=== PATIENT | male | born 2000 | race Caucasian/White ===

== ENCOUNTER 2019-04-25 22:16 | Observation (INO) | payer OTHER ==
--- NOTE | 2019-04-25 22:45 | ED Physician Documentation ---
PD HPI ABD PAIN - Stated complaint Stated Complaint: ABD PAIN - Chief complaint Chief Complaint: Abd Pain - History obtained from History obtained from: Patient - History of Present Illness Timing - onset: Enter time (10:00), Today Timing - duration: Hours Timing - details: Gradual onset, Constant Pain level now: 7 Quality: Pain Location: RLQ Improved by: Laying still Worsened by: Moving, Palpation Associated symptoms: Nausea. No: Fever, Vomiting, Diarrhea, Constipation Similar symptoms before: Has not had sx before Recently seen: Not recently seen Review of Systems Constitutional: reports: Reviewed and negative Eyes: reports: Reviewed and negative Ears: reports: Reviewed and negative Nose: reports: Reviewed and negative Throat: reports: Reviewed and negative Cardiac: reports: Reviewed and negative Respiratory: reports: Reviewed and negative GI: reports: Abdominal Pain, Nausea. denies: Abdominal Swelling, Vomiting, Constipation, Diarrhea : denies: Dysuria, Frequency Skin: reports: Reviewed and negative Musculoskeletal: reports: Reviewed and negative Neurologic: reports: Reviewed and negative PD PAST MEDICAL HISTORY - Past Medical History Past Medical History: No - Past Surgical History Past Surgical History: No - Allergies Allergies/Adverse Reactions: Allergies Allergy/AdvReac Type Severity Reaction Status Date / Time No Known Drug Allergies Allergy Verified 04/25/19 22:21 - Living Situation Living Situation: reports: Alone Living Arrangement: reports: At home - Social History Does the pt smoke?: No PD ED PE NORMAL - Vitals Vital signs reviewed: Yes - General General: Alert and oriented X 3, No acute distress, Well developed/nourished - HEENT HEENT: Moist mucous membranes - Neck Neck: Supple, no meningeal sign - Cardiac Cardiac: RRR, No murmur - Respiratory Respiratory: No respiratory distress, Clear bilaterally - Abdomen Abdomen: Soft, Non distended, Other (RLQ tenderness without rebound) - Back Back: No CVA TTP - Derm Derm: Normal color, Warm and dry, No rash - Extremities Extremities: No edema Results - Vitals Vitals: Vital Signs - 24 hr 04/25/19 04/26/19 04/26/19 22:21 00:55 02:33 Temperature 36.7 C 37.2 C Heart Rate 94 74 71 Respiratory 16 16 16 Rate Blood Pressure 119/53 L 107/69 117/58 L O2 Saturation 97 100 99 04/26/19 04/26/19 04:45 05:42 Temperature 36.5 C Heart Rate 80 Respiratory 16 16 Rate Blood Pressure 111/61 O2 Saturation 99 Oxygen O2 Source Room air - Labs Labs: Laboratory Tests 04/25/19 04/25/19 04/25/19 22:48 22:48 23:25 WBC 10.3 RBC 4.90 Hgb 14.4 Hct 42.7 MCV 87.0 MCH 29.4 MCHC 33.8 RDW 12.8 Plt Count 215 MPV 7.3 L Neut # (Auto) 7.6 H Lymph # (Auto) 2.0 [place] # (Auto) 0.7 Eos # (Auto) 0.0 Baso # (Auto) 0.0 Absolute Nucleated RBC 0.00 Nucleated RBC % 0.0 Sodium 136 Potassium 3.7 Chloride 100 L Carbon Dioxide 26 Anion Gap 10.0 BUN 17 Creatinine 1.0 Estimated GFR (MDRD) 96 Glucose 113 H Calcium 9.4 Total Bilirubin 0.7 AST 94 H ALT 57 Alkaline Phosphatase 72 Total Protein 7.4 Albumin 4.5 Globulin 2.9 Albumin/Globulin Ratio 1.6 Lipase 34 Urine Color YELLOW Urine Clarity CLEAR Urine pH 6.5 Ur Specific [place] 1.010 Urine Protein NEGATIVE Urine Glucose (UA) NEGATIVE Urine Ketones NEGATIVE Urine Occult Blood NEGATIVE Urine Nitrite NEGATIVE Urine Bilirubin NEGATIVE Urine Urobilinogen 0.2 (NORMAL) Ur Leukocyte Esterase NEGATIVE Ur Microscopic Review NOT INDICATED Urine Culture Comments NOT INDICATED - Rads (name of study) CT A/P Radiology: Prelim report reviewed, See rad report PD MEDICAL DECISION MAKING - ED course Complexity details: reviewed results, re-evaluated patient, considered differential, d/w patient ED course: D/W Dr. Payton, recommends antibiotic (Zosyn thus ordered) and plan is to hold in ED until she takes him to OR in the morning Departure - Departure Disposition: ED Transfer to [facility] Clinical Impression: Appendicitis Qualifiers: Appendicitis type: acute appendicitis Acute appendicitis type: unspecified acute appendicitis type Qualified Code(s): K35.80 - Unspecified acute appendicitis Condition: Good
[2019-04-25 22:53] LABS: BASOPHILS % (AUTO) 0.2 %; EOSINOPHILS % (AUTO) 0.4 %; HGB - HEMOGLOBIN 14.4 g/dL (14.0-18.0); LYMPHOCYTES % (AUTO) 19.2 %; MEAN CORPUSCULAR HEMOGLOBIN 29.4 pg (27.0-31.0); MEAN CORPUSCULAR HGB CONC 33.8 g/dL (32.0-36.0); MEAN PLATELET VOLUME 7.3 fL (7.4-11.4); MONOCYTES # (AUTO) 0.7 10^3/uL (0.0-1.0); MONOCYTES % (AUTO) 6.4 %; NEUTROPHILS # (AUTO) 7.6 10^3/uL (1.5-6.6); NEUTROPHILS % (AUTO) 73.8 %; PLT - PLATELET COUNT 215 10^3/uL (130-450); RED CELL DISTRIBUTION WIDTH 12.8 % (12.0-15.0); WHITE BLOOD COUNT 10.3 x10^3/uL (4.8-10.8)
[2019-04-25] MEDS ORDERED: SODIUM CHLORIDE 0.9% 1,000 ML IV STA (22:55)
[2019-04-25 23:06] LABS: ALBUMIN 4.5 g/dL (3.2-5.5); ALBUMIN/GLOBULIN RATIO 1.6 (1.0-2.2); BILIRUBIN,TOTAL 0.7 mg/dL (0.2-1.0); CALCIUM 9.4 mg/dL (8.5-10.3); TOTAL PROTEIN 7.4 g/dL (6.7-8.2)
[2019-04-25] MEDS ORDERED: IOVERSOL 320 100 ML VIAL IVP ONE ×2 (23:07→23:19)
[2019-04-25 23:37] LABS: BILIRUBIN,URINE NEGATIVE (NEGATIVE); GLUCOSE, URINE (UA) NEGATIVE (NEGATIVE); KETONES,URINE (UA) NEGATIVE (NEGATIVE); LEUKOCYTE ESTERASE, URINE NEGATIVE (NEGATIVE); NITRITE,URINE NEGATIVE (NEGATIVE); OCCULT BLOOD,URINE NEGATIVE (NEGATIVE); PH,URINE 6.5 PH (5.0-7.5); PROTEIN,URINE NEGATIVE (NEGATIVE); UROBILINOGEN,URINE 0.2 (NORMAL) E.U./dL (NORMAL)
[2019-04-25 23:43] LABS: CLARITY,URINE CLEAR (CLEAR)
--- NOTE | 2019-04-25 23:53 | CT Report ---
Reason: RLQ pain Procedure Date: 04/25/2019 Accession Number: [id number] / [id number] Procedure: CT - Abdomen/Pelvis W CPT Code: FULL RESULT: EXAM: CT ABDOMEN AND PELVIS EXAM DATE: 04/25/2019 11:18 PM. CLINICAL HISTORY: Abdominal pain. COMPARISONS: None. TECHNIQUE: Routine helical CT imaging was performed through the abdomen and pelvis. IV contrast: Nonionic. Enteric contrast: No. Reconstructions: Coronal and sagittal. In accordance with CT protocol optimization, one or more of the following dose reduction techniques were utilized for this exam: automated exposure control, adjustment of mA and/or KV based on patient size, or use of iterative reconstructive technique. FINDINGS: Lung Bases: Unremarkable. Liver: No focal abnormalities seen. Gallbladder/Bile Ducts: Unremarkable. Spleen: Mildly enlarged at 13.1 cm. Pancreas: Normal. Adrenal Glands: Normal. Kidneys: Normal. No masses or hydronephrosis. Peritoneal Cavity/Bowel: No bowel obstruction seen. No diverticulitis. Small amount of free fluid in the pelvis. No free air. Moderate stool in the right hemicolon. Normal sized mesenteric lymph nodes. Borderline dilated inflamed appendix measuring up to 10 mm. No abscess seen. Pelvic Organs: Normal. The bladder and visualized pelvic organs are within normal limits. Vasculature: No aneurysms or other significant abnormality. Bones: No significant abnormality. Other: None. IMPRESSION: 1. Appendicitis measuring 10 mm in diameter. No abscess seen. 2. Small amount of free fluid in the pelvis. No free air. 3. Mild splenomegaly. RADIA
[2019-04-26] MEDS ORDERED: PIPERACILLIN/TAZOBACTAM 3.375 GM in SODIUM CHLORIDE 0.9% MINIBAG 100 ML IV STA ×2 (00:04→05:59)
[2019-04-26] MEDS ORDERED: MORPHINE 2 MG/ML CARPUJECT IVP STA (00:57)
[2019-04-26] MEDS ORDERED: SODIUM CHLORIDE 0.9% 1,000 ML IV STA (05:59)
--- NOTE | 2019-04-26 08:04 | HISTORY & PHYSICAL EXAMINATION ---
Chief Complaint - Chief Complaint Chief Complaint: Abdominal Pain Abdominal Pain HPI - History Obtained From History obtained from: Patient Exam limitations: No limitations - History of Present Illness Severity at the worst: Severe Pain Quality: Aching, Throbbing Context-Pain started w/: Movement, Palpation Timing: Gradual onset Duration: Hours: (Started at 10 AM) Improved with: Nothing Worsened by: Movement, Palpation Associated symptoms: Nausea, General Weakness PMH/PSH - Past Medical History Cardiovascular: positive: None Respiratory: positive: None Neuro: positive: None Endocrine/Autoimmune: positive: None GI: positive: None : positive: None HEENT: positive: None Psych: positive: None Musculoskeletal: positive: None MRSA Hx?: No Social & Family Hx - Living Situation Living Arrangement: Other ([place] [facility]) Living Situation: With friend(s) - Social History Does the pt smoke?: No Smoking Status: Never smoker Does the pt drink ETOH?: No Does the pt have substance abuse?: No - POLST Patient has POLST: No - Family History Family History: Mother: Alive and Well, Father: Alive and Well Meds/Allgy - Allergies Allergies/Adverse Reactions: Allergies Allergy/AdvReac Type Severity Reaction Status Date / Time No Known Drug Allergies Allergy Verified 04/25/19 22:21 Review of Systems - Constitutional Constitutional: reports: Chills, Malaise, Poor appetite - Gastrointestinal Gastrointestinal: reports: Abdominal pain, Nausea, Poor appetite - Musculoskeletal Musculoskeletal: reports: Muscle pain - All Other Systems All Other Systems: reports: Reviewed and negative Exam - Vital Signs Vital Signs: Vital Signs x48h Temp Pulse Resp BP Pulse Ox 04/26/19 05:42 36.5 C 80 16 111/61 99 04/26/19 04:45 16 04/26/19 02:33 37.2 C 71 16 117/58 L 99 04/26/19 00:55 74 16 107/69 100 - Physical Exam General Appearance: positive: Mild distress Eyes Bilateral: positive: Normal inspection, PERRL, EOMI, No lid inflammation ENT: positive: Pharynx nml, No signs of dehydration Neck: positive: Nml inspection, Trachea midline. negative: Lymphadenopathy (R), Lymphadenopathy (L) Respiratory: positive: No respiratory distress, Breath sounds nml Cardiovascular: positive: Regular rate & rhythm, No murmur Peripheral Pulses: positive: 2+ Abdomen: positive: Nml bowel sounds, Tenderness, Rebound Skin: positive: Color nml, No rash Extremities: positive: Non-tender, No pedal edema Neurologic/Psychiatric: positive: Oriented x3 Results - Lab Results Fish Bones: 04/25/19 22:48 04/25/19 22:48 Other Lab Results: Lab Results x24hrs 04/25/19 04/25/19 04/25/19 Range/Units 23:25 22:48 22:48 WBC 10.3 (4.8-10.8) x10^3/uL RBC 4.90 (4.70-6.10) 10^6/uL Hgb 14.4 (14.0-18.0) g/dL Hct 42.7 (42.0-52.0) % MCV 87.0 (80.0-94.0) fL MCH 29.4 (27.0-31.0) pg MCHC 33.8 (32.0-36.0) g/dL RDW 12.8 (12.0-15.0) % Plt Count 215 (130-450) 10^3/uL MPV 7.3 L (7.4-11.4) fL Neut # (Auto) 7.6 H (1.5-6.6) 10^3/uL Lymph # (Auto) 2.0 (1.5-3.5) 10^3/uL [place] # (Auto) 0.7 (0.0-1.0) 10^3/uL Eos # (Auto) 0.0 (0.0-0.7) 10^3/uL Baso # (Auto) 0.0 (0.0-0.1) 10^3/uL Absolute Nucleated RBC 0.00 x10^3/uL Nucleated RBC % 0.0 /100WBC Sodium 136 (135-145) mmol/L Potassium 3.7 (3.5-5.0) mmol/L Chloride 100 L (101-111) mmol/L Carbon Dioxide 26 (21-32) mmol/L Anion Gap 10.0 (6-13) BUN 17 (6-20) mg/dL Creatinine 1.0 (0.6-1.2) mg/dL Estimated GFR (MDRD) 96 (>89) Glucose 113 H (70-100) mg/dL Calcium 9.4 (8.5-10.3) mg/dL Total Bilirubin 0.7 (0.2-1.0) mg/dL AST 94 H (10-42) IU/L ALT 57 (10-60) IU/L Alkaline Phosphatase 72 (42-121) IU/L Total Protein 7.4 (6.7-8.2) g/dL Albumin 4.5 (3.2-5.5) g/dL Globulin 2.9 (2.1-4.2) g/dL Albumin/Globulin Ratio 1.6 (1.0-2.2) Lipase 34 (22-51) U/L Urine Color YELLOW Urine Clarity CLEAR (CLEAR) Urine pH 6.5 (5.0-7.5) PH Ur Specific [place] 1.010 (1.002-1.030) Urine Protein NEGATIVE (NEGATIVE) mg/dL Urine Glucose (UA) NEGATIVE (NEGATIVE) mg/dL Urine Ketones NEGATIVE (NEGATIVE) mg/dL Urine Occult Blood NEGATIVE (NEGATIVE) Urine Nitrite NEGATIVE (NEGATIVE) Urine Bilirubin NEGATIVE (NEGATIVE) Urine Urobilinogen 0.2 (NORMAL) (NORMAL) E.U./dL Ur Leukocyte Esterase NEGATIVE (NEGATIVE) Ur Microscopic Review NOT INDICATED Urine Culture Comments NOT INDICATED - Diagnostic Imaging Results Diagnostic Imaging Results: positive: Final report reviewed Diagnostic Imaging Results Comments: 10 mm appendix without evidence of abscess. Minimal free fluid in the pelvis. Impression/Plan - Problem List Problem List: Early acute appendicitis in the setting of an otherwise healthy 18 year old man. We have discussed the risks and benefits of laparoscopic appendectomy and the patient has expressed a desire to complete the procedure today.
[2019-04-26] MEDS ORDERED: BUPIVACAINE 0.5% PF 10 ML VIAL ONE (08:25)
[2019-04-26] MEDS ORDERED: LIDOCAINE 1% 50 ML MDV ONE (08:26)
--- NOTE | 2019-04-26 08:42 | ANESTHESIA ---
Pre-Anesthesia VS, & Labs - Diagnosis Acute Appendicitis - Procedure Laparoscopic appendectomy Vital Signs: Temp Pulse Resp BP Pulse Ox 36.5 C 80 16 111/61 99 04/26/19 05:42 04/26/19 05:42 04/26/19 05:42 04/26/19 05:42 04/26/19 05:42 Height 5 ft 11.5 in Weight (kg) 81.3 kg Body Mass Index 24.6 - NPO >8 hours Last Food Intake: 04/25/19 - Lab Results Current Lab Results: Laboratory Tests 04/25/19 22:48: Sodium 136, Potassium 3.7, Chloride 100 L, Carbon Dioxide 26, Anion Gap 10.0, BUN 17, Creatinine 1.0, Estimated GFR (MDRD) 96, Glucose 113 H, Calcium 9.4, Total Bilirubin 0.7, AST 94 H, ALT 57, Alkaline Phosphatase 72, Total Protein 7.4, Albumin 4.5, Globulin 2.9, Albumin/Globulin Ratio 1.6, Lipase 34 04/25/19 22:48: WBC 10.3, RBC 4.90, Hgb 14.4, Hct 42.7, MCV 87.0, MCH 29.4, MCHC 33.8, RDW 12.8, Plt Count 215, MPV 7.3 L, Neut # (Auto) 7.6 H, Lymph # (Auto) 2.0, [place] # (Auto) 0.7, Eos # (Auto) 0.0, Baso # (Auto) 0.0, Absolute Nucleated RBC 0.00, Nucleated RBC % 0.0 Lab results reviewed: Yes Fish Bones: 04/25/19 22:48 04/25/19 22:48 Home Medications and Allergies Active Medications Sodium Chloride (Normal Saline 0.9%) 1,000 mls @ 150 mls/hr IV .Q6H40M STA Stop: 04/26/19 12:38 Last Admin: 04/26/19 06:02 Dose: 150 mls/hr Allergies/Adverse Reactions: Allergies Allergy/AdvReac Type Severity Reaction Status Date / Time No Known Drug Allergies Allergy Verified 04/25/19 22:21 Anes History & Medical History - Anesthetic History Anesthesia Complications: reports: No previous complications Family history of Anesthesia Complications: Denies Family history of Malignant Hyperthermia: Denies - Medical History Cardiovascular: reports: None Pulmonary: reports: None Gastrointestinal: reports: None Urinary: reports: None Neuro: reports: None Musculoskeletal: reports: None Endocrine/Autoimmune: reports: None Blood Disorders: reports: None Smoking Status: Never smoker - Surgical History Other Past Surgical History: wisdom teeth extraction in office Exam General: Alert, Oriented x3, Cooperative Dental: WNL Mouth Openin Fingerbreadth Neck Mobility: Normal Mallampati classification: I Thyromental Distance: 4-6 cm Respiratory: Lungs clear, Normal breath sounds, No respiratory distress (pain at RLQ with big breath) Cardiovascular: Regular rate Neurological: Normal speech Mental/Cognitive Status: Alert/Oriented X3 Cognitive Status: Within normal limits Plan Anesthesia Type: General Consent for Procedure(s) Verified and Reviewed: Yes Code Status: Attempt Resuscitation ASA classification: 1-Healthy patient Is this case an emergency?: No
[2019-04-26] MEDS ORDERED: BUPIVACAINE 0.5%-EPI 1:200000 PF 30 ML VIAL SUBQ ONE (10:39)
[2019-04-26] MEDS ORDERED: SODIUM CHLORIDE 0.9% 1,000 ML IV ONE (10:41)
[2019-04-26] MEDS ORDERED: SUGAMMADEX 200 MG/2 ML VIAL IVP ONE ×2 (10:50→11:13)
[2019-04-26] MEDS ORDERED: LACTATED RINGERS 1,000 ML IV ONE (11:08)
[2019-04-26] MEDS ORDERED: PROPOFOL 200 MG/20 ML VIAL IVP ONE (11:13)
[2019-04-26] MEDS ORDERED: KETOROLAC 30 MG/ML VIAL IVP ONE (11:13)
[2019-04-26] MEDS ORDERED: ROCURONIUM 50 MG/5 ML VIAL IVP ONE (11:13)
[2019-04-26] MEDS ORDERED: fentaNYL 100 MCG/2 ML VIAL IVP ONE (11:13)
[2019-04-26] MEDS ORDERED: ONDANSETRON 4 MG/2 ML VIAL IVP ONE (11:13)
[2019-04-26] MEDS ORDERED: DEXAMETHASONE 4 MG/ML VIAL IVP ONE (11:13)
--- NOTE | 2019-04-26 11:41 | OPERATIVE REPORT ---
Operative Report - General Planned Procedure: Laparoscopic appendectomy Pre-Op Diagnosis: Acute appendicitis Procedure Performed: Laparoscopic appendectomy Post Op Diagnosis: Acute appendicitis - Procedure Note Primary Surgeon: Tata Anesthesia Provider: Dr. Ryan Anesthesia Technique: General ET tube Pathology: Appendix to pathology in formalin Estimated Blood Loss (mL): 10 Findings: Early acute appendicitis without abscess or perforation. No evidence of peritonitis. Complications: None apparent - Other Other Information/Narrative: After obtaining informed consent, the patient is brought to the operating room and placed in prone position the operating table.Following successful induction of general endotracheal anesthesia, appropriate padding of all bony prominences, and placement of appropriate monitors,the abdomen is prepped and draped in standard surgical fashion.A timeout was held per IDOAP protocol. Following infiltration with local anesthetic to create a field block, 3 incisions were created on the patient's abdomen.This was inferior to the umbilicus, the second in the suprapubic region and the third in the right upper quadrant.A 10 mm blunt Rojas balloon trocar was placed in the abdominal cavity at the umbilical position. The abdomen was insufflated to 15 mmHg pressure.Patient was placed in reverse Trendelenburg position with a left-sided rotator toward the floor.2 additional trochars were placed under direct vision. The appendix is seen extending from the cecum in the right lower quadrant. There is no purulence or peritonitis. The appendix itself was inflamed and ad herent to the body wall.This was grasped and elevated in the field. The base of the appendix and mesoappendix were carefully defined.Within liberated from their attachment to the cecum using a single 45 mm stapling device.The appendix was placed in an Endo Catch bag and removed via the umbilical port the camera in the suprapubic position.The abdomen was checked for hemostasis.The trochars were re viewed direct vision the abdomen was desufflated.The umbilical incision was closed with interrupted 0Vicryl suture.Skin incisions were closed with 4-0 Monocryl.All incisions were dressed with Dermabond. All sponge, needle, and instrument counts are correct at the conclusion of the case.The patient was allowed to awaken from anesthesia without difficulty and taken to the postanesthesia care unit in good condition.
[2019-04-26] MEDS ORDERED: ONDANSETRON 4 MG/2 ML VIAL IVP PRN (13:09)
[2019-04-26] MEDS ORDERED: SODIUM CHLORIDE FLUSH 0.9% 10 ML SYRINGE IVP PRN (13:09)
[2019-04-26] MEDS ORDERED: LIDOCAINE-MPF 2% 5 ML VIAL IM ONE (13:10)
[2019-04-26] MEDS ORDERED: oxyCODONE 5 MG TABLET ONE (13:13)
[2019-04-26] MEDS ORDERED: PIPERACILLIN/TAZOBACTAM 3.375 GM in SODIUM CHLORIDE 0.9% MINIBAG 100 ML IV SCH (14:00)
[2019-04-26] MEDS: DEXTROSE 5%-0.45% NACL 1,000 ML IV SCH (14:37)
[2019-04-26] MEDS: PANTOPRAZOLE 40 MG TABLET PO SCH (14:38)
[2019-04-26] MEDS: HYDROmorphone 1 MG/ML CARPUJECT IVP PRN ×2 (14:39→19:55)
[2019-04-26] MEDS: SODIUM CHLORIDE FLUSH 0.9% 10 ML SYRINGE IVP SCH (17:28)
[2019-04-26] MEDS: oxyCODONE 5 MG TABLET PO PRN ×2 (17:56→23:57)
[2019-04-27] MEDS: DEXTROSE 5%-0.45% NACL 1,000 ML IV SCH ×2 (00:47→14:54)
[2019-04-27] MEDS: SODIUM CHLORIDE FLUSH 0.9% 10 ML SYRINGE IVP SCH ×3 (01:27→17:18)
[2019-04-27] MEDS ORDERED: MORPHINE 10 MG/ML VIAL IVP STA (01:55)
[2019-04-27] MEDS ORDERED: MORPHINE 4 MG/ML VIAL IVP ONE (03:00)
[2019-04-27] MEDS: oxyCODONE 5 MG TABLET PO PRN ×3 (05:15→22:17)
[2019-04-27] MEDS: PANTOPRAZOLE 40 MG TABLET PO SCH (05:15)
[2019-04-27] MEDS ORDERED: KETOROLAC 30 MG/ML VIAL IVP PRN (10:56)
--- NOTE | 2019-04-27 13:45 | PROVIDER PROGRESS NOTE ---
Subjective - Prog Note Date Prog Note Date: 04/27/19 Prog Note Time: 13:37 - Subjective Pt reports feeling: Improved (Right lower quadrant pain has improved since admission but he is complaining of pain in his incision sites.) Subjective: Guilherme reports that he still quite uncomfortable.He says that his pain medications have not really given him any benefit.He rates his pain is a 5-7Does not sometimes is even worse. He had one episode of flatus and has walked one time in the halls today.He is taking minimal p.o.. Vital Signs - 24 hr 04/26/19 04/26/19 04/26/19 14:00 14:30 15:45 Temperature 36.6 C 36.5 C 36.5 C Heart Rate Heart Rate [ 89 87 82 Brachial] Respiratory 16 16 16 Rate Blood Pressure 127/63 124/56 L 114/57 L [Right Brachial artery] O2 Saturation 97 96 98 04/26/19 04/26/19 04/26/19 16:30 18:30 20:30 Temperature 36.5 C 36.9 C 36.6 C Heart Rate Heart Rate [ 76 87 88 Brachial] Respiratory 16 20 16 Rate Blood Pressure 111/55 L 117/59 L 117/59 L [Right Brachial artery] O2 Saturation 97 97 97 04/27/19 04/27/19 04/27/19 00:00 01:54 05:00 Temperature 36.6 C 36.6 C 36.5 C Heart Rate 84 Heart Rate [ 84 77 Brachial] Respiratory 18 18 16 Rate Blood Pressure 115/41 L 121/43 L [Right Brachial artery] O2 Saturation 97 97 97 04/27/19 04/27/19 08:17 11:21 Temperature 36.5 C 37.0 C Heart Rate Heart Rate [ 75 71 Brachial] Respiratory 18 18 Rate Blood Pressure 120/47 L 123/59 L [Right Brachial artery] O2 Saturation 98 100 Oxygen O2 Source Room air Lungs are clear to auscultation bilaterally and heart is regular rate and rhythm Abdomen is soft and appropriately tender with active bowel sounds.Incisions are clean dry and intact. There is no peripheral edema Assessment and plan: Postop day 1 after lap scopic appendectomy for acute a ppendicitis without peritonitis.This young man will be returned to the [facility] after discharge. We have not been successful in getting his pain control to a level that will accommodate his discharge. I will change hisPatient to Percocet and discontinue simple oxycodone. I will increase the dose to 2 tablets instead of 1.We will plan for discharge morning if his pain is well controlled. Also encouraged him to ambulate at least 2 more times today. Objective - Vital Signs/Intake & Output Vital Signs: Vital Signs x48h Temp Pulse Resp BP Pulse Ox 04/27/19 11:21 37.0 C 71 18 123/59 L 100 04/27/19 08:17 36.5 C 75 18 120/47 L 98 Intake & Output: Intake & Output 04/24/19 04/25/19 04/26/19 04/27/19 23:59 23:59 23:59 23:59 Intake Total 2910 1999 Output Total 1875 925 Balance 1035 1075 - Lab Results Fish Bones: 04/25/19 22:48 04/25/19 22:48
[2019-04-27] MEDS: ACETAMINOPHEN 325 MG TABLET PO SCH ×2 (14:23→18:33)
[2019-04-28] MEDS: ACETAMINOPHEN 325 MG TABLET PO SCH ×3 (00:45→12:24)
[2019-04-28] MEDS: SODIUM CHLORIDE FLUSH 0.9% 10 ML SYRINGE IVP SCH ×2 (00:47→09:17)
[2019-04-28] MEDS: PANTOPRAZOLE 40 MG TABLET PO SCH (06:00)
[2019-04-28 08:04] VITALS: BP 118/59
[2019-04-28] MEDS ORDERED: POLYETHYLENE GLYCOL 3350 17 GM PACKET PO SCH (09:00)
--- NOTE | 2019-04-28 11:17 | Discharge Plan ---
Discharge Plan Disposition: Home, Self Care Condition: Good Prescriptions: RX: Acetaminophen 650 mg PO Q6H PRN #30 tablet PRN Reason: Pain RX: Ibuprofen 600 mg PO Q6H PRN #30 tablet PRN Reason: Pain Diet: Regular (high fiber) Activity Restrictions: see surgical discharge instructions; no lifting or strenuous exercise for one week Shower Restrictions: No Driving Restrictions: Yes (no driving for 3 days) Weight Bearing: Full Weight Instruction Topics: Ibuprofen tablets and capsules, Acetaminophen Oral tablet extended-release, Appendectomy After, Appendicitis No Smoking: If you smoke, Please STOP! Call for help. Follow-up with: Jacqueline Payton MD [Provider Admit Priv/Credential] -
--- NOTE | 2019-04-28 11:21 | DISCHARGE SUMMARY ---
"Discharge Summary Admit Date: 04/26/19 Discharge Date: 04/28/19 Discharging Provider: Dr. Wily Barajas Code Status: Attempt Resuscitation Condition at Discharge: Good Discharge Disposition: 01 Home, Self Care Discharge Facility Name: [facility] - DIAGNOSES Admission Diagnoses: Acute appendicitis Discharge Diagnoses with Status of Each Condition: Acute appendicitis-resolved. - HPI History of Present Illness: See admission H&P - CONSULTS | PROCEDURES Procedures: Lap appy 04/26/19 - HOSPITAL COURSE Hospital Course: Pt was taken to the OR on the day of admission where the above noted procedure was carried out without operative complications. Pt had some difficulty with postop pain control and inadequate oral intake initially but by the day of d/c his pain was well controlled with oral analgesics, he was tolerating a regular diet well, ambulating, voiding and moving his bowels. His incsions were healing well. - ALLERGIES Allergies/Adverse Reactions: Allergies Allergy/AdvReac Type Severity Reaction Status Date / Time No Known Drug Allergies Allergy Verified 04/25/19 22:21 - MEDICATIONS Home Medications: Ambulatory Orders Medication Instructions Recorded Confirmed Acetaminophen 650 mg PO Q6H PRN #30 tablet 04/28/19 Ibuprofen 600 mg PO Q6H PRN #30 tablet 04/28/19 - PHYSICAL EXAM AT DISCHARGE General Appearance: positive: No acute distress, Alert Eyes Bilateral: positive: Conjunctivae nml, No scleral icterus Abdomen: positive: Non-tender, No distention, Other (incisions healing well). negative: Guarding, Rebound, Hepatomegaly, Splenomegaly, Mass Skin: positive: Color nml, No rash, Warm, Dry. negative: Cyanosis Extremities: positive: No pedal edema. negative: Calf tenderness Neurologic/Psychiatric: positive: Oriented x3 - LABS Result Diagrams: 04/25/19 22:48 04/25/19 22:48 - FOLLOW UP Follow Up: Dr. Payton in 6 days. - TIME SPENT Time Spent in Discharge (Minutes): 30"
--- NOTE | 2019-04-28 11:30 | PROVIDER PROGRESS NOTE ---
Subjective - General Admit Date: 04/26/19 Procedure Date: 04/26/19 Post Op Days: 2 Procedure Performed: lap appy - Review of Systems Wound/Incisions: positive: Healing well, No drainage General: positive: No symptoms Gastrointestinal: positive: Abdominal pain (improved; no analgesic use x 12 hours). negative: Nausea, Vomiting All Other Systems: positive: Reviewed and negative Objective - Patient Data Reviewed Vital Signs: Yes Vital Signs: Vital Signs x48h Temp Pulse Resp BP Pulse Ox 04/28/19 08:03 36.6 C 65 16 118/59 L 98 04/28/19 04:50 36.5 C 74 16 118/68 99 Weight: Weight 04/26/19 04/27/19 04/28/19 23:59 23:59 23:59 Weight (kg) 83.5 kg Intake & Output: Intake and Output Totals x24h 04/26/19 04/27/19 04/28/19 23:59 23:59 23:59 Intake Total 2910 3700 900 Output Total 1875 925 Balance 1035 2775 900 - Lab Results Lab Results: 04/25/19 22:48 04/25/19 22:48 - Current Medications Current Medications: Current Medications Generic Name Dose Route Start Last Admin Trade Name Freq PRN Reason Stop Dose Admin Acetaminophen 650 mg 04/27/19 14:00 04/28/19 05:59 Tylenol PO 650 mg Q6HR JARROD Administration Hydromorphone HCl 1 mg 04/26/19 13:09 04/26/19 19:55 Dilaudid Inj Carp IVP 1 mg Q2HR PRN Administration PAIN Ketorolac Tromethamine 30 mg 04/27/19 10:56 04/27/19 11:16 Toradol Inj (30mg) IVP 05/02/19 10:55 30 mg Q6HR PRN Administration PAIN Ondansetron HCl 4 mg 04/26/19 13:09 04/26/19 14:38 Zofran Inj IVP 4 mg Q6H PRN Administration Nausea / Vomiting Oxycodone HCl 10 mg 04/27/19 13:50 04/27/19 22:17 Roxicodone PO 10 mg Q6HR PRN Administration PAIN Pantoprazole Sodium 40 mg 04/26/19 14:00 04/28/19 06:00 Protonix PO 40 mg QDAC JARROD Administration Polyethylene Glycol 17 gm 04/28/19 09:00 04/28/19 09:17 Miralax PO 17 gm DAILY JARROD Administration Sodium Chloride 10 ml 04/26/19 17:00 04/28/19 09:17 Normal Saline Flush 0.9% IVP 10 ml 0100,0900,1700 JARROD Administration Sodium Chloride 10 ml 04/26/19 13:09 04/27/19 11:17 Normal Saline Flush 0.9% IVP 10 ml PRN PRN Administration NEEDED PER PROVIDER ORDERS - Physical Exam Wound/Incisions: positive: Healing well, No drainage General Appearance: positive: No acute distress Eyes Bilateral: positive: No scleral icterus Abdomen: positive: Non-tender, No organomegaly, No distention, Other (incisions healing well). negative: Guarding, Rebound, Hepatomegaly, Splenomegaly, Mass Skin: positive: Color nml, No rash, Warm, Dry. negative: Cyanosis Extremities: positive: No pedal edema. negative: Calf tenderness Neurologic/Psychiatric: positive: Oriented x3 ABX Reporting Has patient been on IV antibiotics over the past 48 hours?: No Impression/Plan - Problem List Problem List: Doing well PO Day 2 s/p lap appy for acute appendicitis. Plan: home today; usual precautions; f/u with Dr. Payton in 6 days; ibuprofen plus acetaminophen for pain.
== END 2019-04-28 12:00 | disposition home or self-care (01) ==
LOC: ED 22:16 → SDS 04-26 10:16 → MS2 04-26 13:09
PROVIDERS: ADMIT Surgery; ATTEND Internal Medicine Gastroenterology
PROC: 0DTJ4ZZ Resection of Appendix, Percutaneous Endoscopic Approach (ICD-10-PCS; principal; 2019-04-26 09:15)
DX: K35.80 Unspecified acute appendicitis (principal)
CPT/HCPCS: 36415; 44970; 74177; 80053; 81003; 83690; 85025; 96361; 96365; 96366; 96375; 99284; A9270; G0378; J1170; J7120; Q9967; 81001; 87086

== ENCOUNTER 2022-02-21 21:10 | Emergency (ER) | payer OTHER ==
[2022-02-21 21:32] LABS: BASOPHILS % (AUTO) 0.3 %; EOSINOPHILS # (AUTO) 0.1 10^3/uL (0.0-0.7); EOSINOPHILS % (AUTO) 1.1 %; HCT - HEMATOCRIT 41.8 % (42.0-52.0); HGB - HEMOGLOBIN 14.3 g/dL (14.0-18.0); LYMPHOCYTES # (AUTO) 2.6 10^3/uL (1.5-3.5); LYMPHOCYTES % (AUTO) 36.8 %; MEAN CORPUSCULAR HGB CONC 34.2 g/dL (32.0-36.0); MEAN CORPUSCULAR VOLUME 87.8 fL (80.0-94.0); MEAN PLATELET VOLUME 9.3 fL (7.4-11.4); MONOCYTES # (AUTO) 0.4 10^3/uL (0.0-1.0); MONOCYTES % (AUTO) 4.9 %; NEUTROPHILS # (AUTO) 4.1 10^3/uL (1.5-6.6); NEUTROPHILS % (AUTO) 56.6 %; PLT - PLATELET COUNT 233 10^3/uL (130-450); RED BLOOD COUNT 4.76 10^6/uL (4.70-6.10); RED CELL DISTRIBUTION WIDTH 11.6 % (12.0-15.0); WHITE BLOOD COUNT 7.2 x10^3/uL (4.8-10.8)
[2022-02-21 21:47] LABS: ALBUMIN 4.4 g/dL (3.2-5.5); ALBUMIN/GLOBULIN RATIO 1.8 (1.0-2.2); BILIRUBIN,TOTAL 0.5 mg/dL (0.2-1.0); POTASSIUM 3.8 mmol/L (3.5-5.0); TOTAL PROTEIN 6.9 g/dL (6.7-8.2)
[2022-02-21 22:02] LABS: BILIRUBIN,URINE NEGATIVE (NEGATIVE); GLUCOSE, URINE (UA) NEGATIVE (NEGATIVE); KETONES,URINE (UA) NEGATIVE (NEGATIVE); LEUKOCYTE ESTERASE, URINE NEGATIVE (NEGATIVE); NITRITE,URINE NEGATIVE (NEGATIVE); OCCULT BLOOD,URINE NEGATIVE (NEGATIVE); PROTEIN,URINE NEGATIVE (NEGATIVE); UROBILINOGEN,URINE 0.2 (NORMAL) E.U./dL (NORMAL)
[2022-02-21 22:03] LABS: CLARITY,URINE CLEAR (CLEAR)
--- NOTE | 2022-02-21 22:22 | ED Physician Documentation ---
PD HPI ABD PAIN - Stated complaint Stated Complaint: RUQ PAIN - Chief complaint Chief Complaint: Abd Pain - History obtained from History obtained from: Patient, EMS - History of Present Illness Timing - onset: Today Timing - details: Abrupt onset, Waxing and waning Pain level max: 8 Pain level now: 5 Quality: Pain Location: RUQ Radiation: Other (does not radiate) Improved by: Other (no ameliorating factors) Worsened by: Palpation Associated symptoms: No: Fever, Nausea, Vomiting, Diarrhea, Constipation Similar symptoms before: No diagnosis Recently seen: Not recently seen - Additional information Additional information: c/o RUQ pain since earlier this evening without specific inciting event. He has had similar episodes over the past 1.5 years but only , on average , once per month, and hasn't been intense or lasting enough for him to seek medical attention until tonight. Nathaniel's episode was both more intense and longer than previous episodes. The pain has significantly improved by the time of this H+P. Review of Systems Constitutional: denies: Fever, Chills, Sweats Cardiac: reports: Reviewed and negative Respiratory: reports: Reviewed and negative GI: reports: Abdominal Pain. denies: Abdominal Swelling, Nausea, Vomiting, Constipation, Diarrhea : denies: Dysuria, Frequency, Hematuria Musculoskeletal: denies: Back pain PD PAST MEDICAL HISTORY - Past Medical History Past Medical History: No Cardiovascular: None Respiratory: None Neuro: None Endocrine/Autoimmune: None GI: None : None HEENT: None Psych: None Musculoskeletal: None - Past Surgical History Past Surgical History: Yes General: Appendectomy - Present Medications Home Medications: Ambulatory Orders Medication Instructions Recorded Confirmed Acetaminophen 650 mg PO Q6H PRN #30 tablet 04/28/19 Ibuprofen 600 mg PO Q6H PRN #30 tablet 04/28/19 - Allergies Allergies/Adverse Reactions: Allergies Allergy/AdvReac Type Severity Reaction Status Date / Time No Known Drug Allergies Allergy Verified 04/25/19 22:21 - Social History Does the pt smoke?: No Smoking Status: Never smoker Does the pt drink ETOH?: No Does the pt have substance abuse?: No - Immunizations Immunizations are current?: Yes - POLST Patient has POLST: No PD ED PE NORMAL - Vitals Vital signs reviewed: Yes - General General: Alert and oriented X 3, No acute distress, Well developed/nourished - Cardiac Cardiac: RRR, No murmur - Respiratory Respiratory: No respiratory distress, Clear bilaterally - Abdomen Abdomen: Soft, Non distended, Other (mild RUQ TTP without rebound or guarding) Results - Vitals Vitals: Oxygen O2 Source Room air - Labs Labs: Laboratory Tests 02/21/22 02/21/22 02/21/22 21:26 21:26 21:30 WBC 7.2 RBC 4.76 Hgb 14.3 Hct 41.8 L MCV 87.8 MCH 30.0 MCHC 34.2 RDW 11.6 L Plt Count 233 MPV 9.3 Neut # (Auto) 4.1 Lymph # (Auto) 2.6 [place] # (Auto) 0.4 Eos # (Auto) 0.1 Baso # (Auto) 0.0 Absolute Nucleated RBC 0.00 Nucleated RBC % 0.0 Sodium 139 Potassium 3.8 Chloride 103 Carbon Dioxide 27 Anion Gap 9.0 BUN 16 Creatinine 1.0 Estimated GFR (MDRD) 93 Glucose 102 H Calcium 9.0 Total Bilirubin 0.5 AST 22 ALT 40 Alkaline Phosphatase 75 Total Protein 6.9 Albumin 4.4 Globulin 2.5 Albumin/Globulin Ratio 1.8 Lipase 41 Urine Color YELLOW Urine Clarity CLEAR Urine pH 6.0 Ur Specific [place] >=1.030 H Urine Protein NEGATIVE Urine Glucose (UA) NEGATIVE Urine Ketones NEGATIVE Urine Occult Blood NEGATIVE Urine Nitrite NEGATIVE Urine Bilirubin NEGATIVE Urine Urobilinogen 0.2 (NORMAL) Ur Leukocyte Esterase NEGATIVE Ur Microscopic Review NOT INDICATED Urine Culture Comments NOT INDICATED PD MEDICAL DECISION MAKING - ED course Complexity details: reviewed results, considered differential, d/w patient ED course: No evidence of gallstone(s) on my bedside ultrasound. He is afebrile with unremarkable blood tests/UA. 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 I discussed this with the patient and at this time, further testing such as US can be deferred to outpatient setting given reassuring / unremarkable blood tests and NAD. Return precautions discussed. Departure - Departure Disposition: 01 Home, Self Care Clinical Impression: Abdominal pain Qualifiers: Abdominal location: right upper quadrant Qualified Code(s): R10.11 - Right upper quadrant pain Condition: Good Instructions: ED Abdominal Pain Unkn Cause Male Follow-Up: BRIDGET BURTON MD [Primary Care Provider] - (Call your primary care provider to arrange for next available appointment) Comments: Your blood tests and urine test are normal. The cause of your symptoms is unclear at this time. Follow up with your primary care provider for reevaluation Discharge Date/Time: 02/21/22 22:52
[2022-02-21 22:50] VITALS: BP 142/92
== END 2022-02-21 22:52 | disposition home or self-care (01) ==
LOC: EDUNIT# → ED 21:10
DX: R10.11 Right upper quadrant pain (principal)
CPT/HCPCS: 36415; 80053; 81001; 81003; 83690; 85025; 87086; 99282; 99284

== ENCOUNTER 2022-03-03 10:40 | Outpatient (CLI) | payer OTHER ==
--- NOTE | 2022-03-03 16:53 | MRI Report ---
PROCEDURE: Knee RT W/O INDICATIONS: RIGHT KNEE PAIN TECHNIQUE: Noncontrast sagittal PD fast spin echo and T2 fast spin echo with fat saturation, sagittal 3-D gradie nt sequence with fat saturation; coronal T1 spin echo and PD fast spin echo with fat saturation, and axial PD fast spin echo with fat saturation through the knee. COMPARISON: None. FINDINGS: Image quality: Excellent. Menisci: The medial and lateral menisci demonstrate normal morphology and internal signal. The meni scal root ligaments appear intact. Cruciate ligaments: The anterior and posterior cruciate ligaments appear intact. Medial structures: The medial collateral ligament appears intact. Visualized portions of the pes ans erinus tendons appear normal. No abnormal bursal fluid. Lateral structures: The lateral collateral ligament, long and short heads of the biceps femoris tend on appear intact. The popliteus tendon appears normal. Iliotibial band appears normal. Anterior structures: The quadriceps and patellar tendons appear intact. There is mild T2 signal surendra vation within the patellar tendon at the patellar insertion site. Patellar alignment is normal. No f emoral trochlear dysplasia or ventral trochlear prominence. No edema in the infrapatellar fat pad. Bones and cartilage: No bone marrow contusions or fractures. The cartilage of the medial and latera l femorotibial compartments, as well as the patellofemoral compartment, appears normal in thickness. Joint space: There is physiologic knee joint fluid. Trace Ebrkowitz's cyst. Normal appearing synovial p licae are incidentally noted. IMPRESSION: 1. No internal derangement. 2. Trace Berkowitz's cyst. 3. Mild patellar tendinitis. Reviewed by: Ed De Jesus MD on 03/03/2022 4:52 PM PDT Approved by: Ed De Jesus MD on 03/03/2022 4:52 PM PDT Station ID: [id number]
== END 2022-03-03 10:41 | disposition home or self-care (01) ==
LOC: DI 10:40
PROVIDERS: ATTEND Student in an Organized Health Care Education/Training Program
DX: M76.51 Patellar tendinitis, right knee (principal)

== ENCOUNTER 2022-03-04 16:05 | Emergency (ER) | payer OTHER ==
[2022-03-04] MEDS ORDERED: lidocaine 1% 20 ML MDV SUBQ STA (16:21)
--- NOTE | 2022-03-04 16:25 | ED Physician Documentation ---
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 Patient states he was using a blade of some sort when the blade slipped and whisked across his the length of his left index finger. He has a vertical laceration Between the MCP and PIP joints. No loss of range of motion of his finger. No other injuries. Patient states he has had a tetanus shot within the last few years. Review of Systems Ten Systems: 10 systems reviewed and negative Constitutional: reports: Reviewed and negative Eyes: reports: Reviewed and negative Ears: reports: Reviewed and negative Nose: reports: Reviewed and negative Throat: reports: Reviewed and negative Cardiac: reports: Reviewed and negative Respiratory: reports: Reviewed and negative GI: reports: Reviewed and negative : reports: Reviewed and negative Skin: reports: Laceration (s) Musculoskeletal: reports: Reviewed and negative Neurologic: reports: Reviewed and negative Psychiatric: reports: Reviewed and negative Endocrine: reports: Reviewed and negative Immunocompromised: reports: Reviewed and negative PD PAST MEDICAL HISTORY - Past Medical History Cardiovascular: None Respiratory: None Neuro: None Endocrine/Autoimmune: None GI: None : None HEENT: None Psych: None Musculoskeletal: None - Past Surgical History Past Surgical History: Yes General: Appendectomy - Present Medications Home Medications: Ambulatory Orders Medication Instructions Recorded Confirmed No Known Home Medications 03/04/22 03/04/22 - Allergies Allergies/Adverse Reactions: Allergies Allergy/AdvReac Type Severity Reaction Status Date / Time No Known Drug Allergies Allergy Verified 03/04/22 16:15 - Social History Does the pt smoke?: No Smoking Status: Never smoker Does the pt drink ETOH?: No Does the pt have substance abuse?: No - Immunizations Immunizations are current?: Yes - POLST Patient has POLST: No PD ED PE NORMAL - Vitals Vital signs reviewed: Yes - General General: Alert and oriented X 3, No acute distress, Well developed/nourished - HEENT HEENT: Atraumatic, PERRL, EOMI, Moist mucous membranes - Neck Neck: Supple, no meningeal sign - Cardiac Cardiac: Strong equal pulses - Respiratory Respiratory: No respiratory distress - Derm Derm: Normal color, Warm and dry, No rash, Other (3 and half centimeter laceration extending vertically along the radial aspect of left index finger between the MCP and PIP joints. Approximately 3 to 4 mm in depth, decreasing as the laceration extends distally. No foreign body.) - Extremities Extremities: No deformity, Other (Full range of motion left index finger. 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, No motor deficit, No sensory deficit, Normal speech - Psych Psych: Normal mood, Normal affect Results - Vitals Vitals: Vital Signs - 24 hr 03/04/22 16:11 Temperature 36.0 C L Heart Rate 82 Respiratory 16 Rate Blood Pressure 132/75 H O2 Saturation 98 Oxygen O2 Source Room air Procedures - Laceration (location) L index finger Length in cm: 3.5 Wound type: Linear, Into subcut fat, Clean Neurovascular status: Sensory intact, Motor intact, Vascular intact Anesthesia: Lidocaine 1% Wound preparation: Hibiclens, Irrigated copiously NS, Wound explored, To the base Skin layer closure: Nylon, Interrupted, Size #-0 - enter number (5.0), Sutures - enter # (9) Other: Patient tolerated well, No complications, Neurovascular intact, Dressing applied, Tetanus UTD PD MEDICAL DECISION MAKING - ED course Complexity details: considered differential, d/w patient ED course: Laceration was repaired with sutures, as above. The patient is up-to-date on tetanus already. Departure - Departure Disposition: 01 Home, Self Care Clinical Impression: Laceration Condition: Stable Instructions: ED Laceration Hand Comments: Please generally keep your wound clean and dry. You may let water and soap run over the wound if you are bathing, but please do not rub, scrub, or wash the wound until sutures are removed. This is to prevent infection. The sutures should be removed in 7 days, as they are symptomatic and will not dissolve on their own. Please avoid strenuous or high flexion activities with that finger until your sutures are taken out. If you develop redness and swelling spreading progressively away from the wound, or if the wound splits open and appears "mushy" please have it rechecked immediately.
[2022-03-04 17:10] VITALS: BP 123/83
== END 2022-03-04 17:08 | disposition home or self-care (01) ==
LOC: EDUNIT# → ED 16:05
DX: S61.211A Laceration without foreign body of left index finger without damage to nail, initial encounter (principal); W26.0XXA Contact with knife, initial encounter; Y99.1 Military activity
CPT/HCPCS: 12002; 99283

== ENCOUNTER 2022-08-04 08:00 | Outpatient (CLI) | payer OTHER ==
--- NOTE | 2022-08-04 21:06 | XRAY Report ---
PROCEDURE: Chest 2 View X-Ray INDICATIONS: SOB TECHNIQUE: 2 view(s) of the chest. COMPARISON: None. FINDINGS: Surgical changes and devices: None. Lungs and pleura: No pleural effusions or pneumothorax. Lungs are clear. Mediastinum: Mediastinal contours are normal. Heart size is normal. Bones and chest wall: No suspicious bony abnormalities. Soft tissues appear unremarkable. IMPRESSION: No acute cardiopulmonary abnormality. Reviewed by: Vikas Aguila MD on 08/04/2022 9:04 PM PDT Approved by: Vikas Aguila MD on 08/04/2022 9:04 PM PDT Station ID: [id number]
== END 2022-08-04 23:59 | disposition home or self-care (01) ==
LOC: DI.N 08:00
PROVIDERS: ATTEND Registered Nurse
DX: R06.02 Shortness of breath (principal)

== ENCOUNTER 2022-08-19 22:43 | Emergency (ER) | payer OTHER ==
[2022-08-19 23:07] LABS: BASOPHILS % (AUTO) 0.3 %; EOSINOPHILS # (AUTO) 0.1 10^3/uL (0.0-0.7); EOSINOPHILS % (AUTO) 0.9 %; HCT - HEMATOCRIT 41.1 % (42.0-52.0); HGB - HEMOGLOBIN 14.3 g/dL (14.0-18.0); LYMPHOCYTES # (AUTO) 3.8 10^3/uL (1.5-3.5); LYMPHOCYTES % (AUTO) 47.4 %; MEAN CORPUSCULAR HEMOGLOBIN 30.4 pg (27.0-31.0); MEAN CORPUSCULAR HGB CONC 34.8 g/dL (32.0-36.0); MEAN CORPUSCULAR VOLUME 87.4 fL (80.0-94.0); MEAN PLATELET VOLUME 9.2 fL (7.4-11.4); MONOCYTES # (AUTO) 0.5 10^3/uL (0.0-1.0); MONOCYTES % (AUTO) 5.6 %; NEUTROPHILS # (AUTO) 3.6 10^3/uL (1.5-6.6); NEUTROPHILS % (AUTO) 45.5 %; PLT - PLATELET COUNT 217 10^3/uL (130-450); RED CELL DISTRIBUTION WIDTH 11.7 % (12.0-15.0)
[2022-08-19 23:20] LABS: ALBUMIN 4.5 g/dL (3.2-5.5); ALBUMIN/GLOBULIN RATIO 1.9 (1.0-2.2); BILIRUBIN,TOTAL 0.4 mg/dL (0.2-1.0); CALCIUM 9.4 mg/dL (8.5-10.3); POTASSIUM 3.8 mmol/L (3.5-5.0); TOTAL PROTEIN 6.9 g/dL (6.7-8.2)
--- NOTE | 2022-08-19 23:21 | XRAY Report ---
PROCEDURE: Chest 1 View X-Ray INDICATIONS: Chest pain TECHNIQUE: One view of the chest was acquired. COMPARISON: 08/04/2022 FINDINGS: Surgical changes and devices: None. Lungs and pleura: No pleural effusions or pneumothorax. Lungs are clear. Mediastinum: Mediastinal contours appear normal. Heart size is normal. Bones and chest wall: No suspicious bony lesions. Overlying soft tissues appear unremarkable. IMPRESSION: 1. No acute cardiopulmonary disease. Reviewed by: Keith Pate MD on 08/19/2022 11:20 PM PDT Approved by: Keith Pate MD on 08/19/2022 11:20 PM PDT Station ID: [id number]
[2022-08-20 00:05] VITALS: BP 132/87
--- NOTE | 2022-08-20 00:17 | ED Physician Documentation ---
PD HPI CHEST PAIN - Stated complaint Stated Complaint: CHEST PX,SOA,ABD PX - Chief complaint Chief Complaint: Cardiac - History obtained from History obtained from: Patient, Family - Additional information Additional information: The patient comes to the emergency department chief complaint of left-sided chest pain. He states that sharp and hurts worse if he moves certain ways and takes a deep breath. He denies any cough or fevers. No exertional chest pain. No nausea or diaphoresis. The patient states he is otherwise fairly healthy. No swelling in his legs or pain. No other complaints at this time. He states it is hurting right now. Review of Systems Ten Systems: 10 systems reviewed and negative Constitutional: reports: Reviewed and negative Eyes: reports: Reviewed and negative Ears: reports: Reviewed and negative Nose: reports: Reviewed and negative Throat: reports: Reviewed and negative Cardiac: reports: Chest pain / pressure Respiratory: reports: Reviewed and negative GI: reports: Reviewed and negative : reports: Reviewed and negative Skin: reports: Reviewed and negative Musculoskeletal: reports: Reviewed and negative Neurologic: reports: Reviewed and negative Psychiatric: reports: Reviewed and negative Endocrine: reports: Reviewed and negative Immunocompromised: reports: Reviewed and negative PD PAST MEDICAL HISTORY - Past Medical History Cardiovascular: None Respiratory: None Neuro: None Endocrine/Autoimmune: None GI: None : None HEENT: None Psych: None Musculoskeletal: None - Past Surgical History Past Surgical History: Yes General: Appendectomy - Present Medications Home Medications: Ambulatory Orders Medication Instructions Recorded Confirmed No Known Home Medications 03/04/22 03/04/22 - Allergies Allergies/Adverse Reactions: Allergies Allergy/AdvReac Type Severity Reaction Status Date / Time No Known Drug Allergies Allergy Verified 08/19/22 22:51 - Social History Does the pt smoke?: No Smoking Status: Never smoker Does the pt drink ETOH?: No Does the pt have substance abuse?: No - Immunizations Immunizations are current?: Yes - POLST Patient has POLST: No PD ED PE NORMAL - Vitals Vital signs reviewed: Yes - General General: Alert and oriented X 3, No acute distress, Well developed/nourished, Other (Well-appearing male, rubbing his left chest and looking slightly uncomfortable.) - HEENT HEENT: Atraumatic, PERRL, EOMI, Moist mucous membranes - Neck Neck: Supple, no meningeal sign - Cardiac Cardiac: RRR, No murmur, Strong equal pulses - Respiratory Respiratory: No respiratory distress, Clear bilaterally - Abdomen Abdomen: Soft, Non tender, Non distended - Derm Derm: Warm and dry - Extremities Extremities: No deformity - Neuro Neuro: Alert and oriented X 3 - Psych Psych: Normal mood, Normal affect PD ED PE EXPANDED - Free text exam Free text exam: Reproducible left chest wall tenderness/pain. Results - Vitals Vitals: Vital Signs - 24 hr 08/19/22 08/19/22 08/20/22 22:47 23:39 00:00 Temperature 36.4 C L Heart Rate 84 91 88 Respiratory 16 23 19 Rate Blood Pressure 136/84 H 128/77 132/87 H O2 Saturation 97 97 98 Oxygen O2 Source Room air - EKG (time done) 2254 Rate: Rate (enter#) (91) Rhythm: NSR [place]: Normal Intervals: Normal UT QRS: Normal Ischemia: Normal ST segments Compare to prior EKG: Old EKG unavailable Computer interpretation: Agree with computer - Labs Labs: Laboratory Tests 08/19/22 08/19/22 08/19/22 23:01 23:01 23:01 WBC 8.0 RBC 4.70 Hgb 14.3 Hct 41.1 L MCV 87.4 MCH 30.4 MCHC 34.8 RDW 11.7 L Plt Count 217 MPV 9.2 Neut # (Auto) 3.6 Lymph # (Auto) 3.8 H [place] # (Auto) 0.5 Eos # (Auto) 0.1 Baso # (Auto) 0.0 Absolute Nucleated RBC 0.00 Nucleated RBC % 0.0 Sodium 139 Potassium 3.8 Chloride 103 Carbon Dioxide 27 Anion Gap 9.0 BUN 14 Creatinine 1.0 Estimated GFR (MDRD) 93 Glucose 118 H Calcium 9.4 Total Bilirubin 0.4 AST 37 ALT 75 H Alkaline Phosphatase 79 Troponin I High Sens 3.7 Total Protein 6.9 Albumin 4.5 Globulin 2.4 Albumin/Globulin Ratio 1.9 Lipase 39 PD MEDICAL DECISION MAKING - ED course Complexity details: reviewed results, re-evaluated patient, considered differential, d/w patient ED course: The patient was worked up with labs, EKG, and chest x-ray, all of which were unremarkable. He was treated symptomatically with Toradol and a dose of hydrocodone. The patient overall was young and low risk For both coronary artery disease and DVT., and his pain was most consistent with a musculoskeletal etiology. We have discussed symptomatic treatment at home and the need for foll ow-up, should the pain continue. We have discussed the usual indications for return. Departure - Departure Disposition: 01 Home, Self Care Clinical Impression: Costochondral chest pain Condition: Stable Instructions: ED Chest Pain Costochondritis Comments: Your EKG, x-ray, and labs all look very good. There is no evidence of an emergent cause of chest pain tonight. The positional and movement related worsening of the pain Are most consistent with a musculoskeletal cause. You may take ibuprofen and Tylenol if needed for the pain. Please follow-up with your doctor as scheduled to address your various medical concerns. Forms: Activity restrictions Discharge Date/Time: 08/20/22 00:32
[2022-08-20] MEDS: HYDROcod/ACETAM 5/325 MG TABLET PO STA (00:29)
[2022-08-20] MEDS: KETOROLAC 60 MG/2 ML VIAL IM STA (00:30)
== END 2022-08-20 00:32 | disposition home or self-care (01) ==
LOC: ED 22:43
DX: R07.89 Other chest pain (principal)
CPT/HCPCS: 36415; 71045; 80053; 83690; 84484; 85025; 93005; 96372; 99283; 99284; A9270

== ENCOUNTER 2022-09-09 13:14 | Outpatient (CLI) | payer OTHER | END 2022-09-09 13:15 | disposition home or self-care (01) | LOC: RT 13:14 | DX: R07.89 Other chest pain (principal); R06.02 Shortness of breath | CPT/HCPCS: 94060; 94729 ==

== ENCOUNTER 2022-10-26 10:22 | Emergency (ER) | payer OTHER ==
[2022-10-26 10:55] VITALS: BP 136/75
[2022-10-26] MEDS ORDERED: IBUPROFEN 800 MG TABLET PO STA (11:35)
--- NOTE | 2022-10-26 11:43 | ED Physician Documentation ---
History of Present Illness - Stated complaint Stated Complaint: LIGHT HEADED/COUGH - Chief complaint Chief Complaint: Resp - History obtained from History obtained from: Patient - History of Present Illness Timing: How many days ago (2) Pain level max: 5 Pain level now: 4 - Additonal information Additional information: Patient is a 22-year-old male who presents to the emergency department with cough, congestion, body aches and headaches for the past 2-3 days. His is sick with same. Nothing makes it better or worse. Taking Tylenol and Motrin at home. Occasional green sputum. Has had fevers and chills. No abdominal pain. No diarrhea, vomiting, or constipation Review of Systems Constitutional: reports: Fever, Chills Nose: reports: Rhinorrhea / runny nose, Congestion Respiratory: reports: Cough GI: denies: Abdominal Pain, Vomiting, Diarrhea : denies: Dysuria, Frequency, Hesitancy Skin: denies: Rash Musculoskeletal: denies: Neck pain, Back pain Neurologic: denies: Headache PD PAST MEDICAL HISTORY - Past Medical History Cardiovascular: None Respiratory: None Neuro: None Endocrine/Autoimmune: None GI: None : None HEENT: None Psych: None Musculoskeletal: None - Past Surgical History Past Surgical History: Yes General: Appendectomy - Present Medications Home Medications: Ambulatory Orders Medication Instructions Recorded Confirmed No Known Home Medications 03/04/22 03/04/22 - Allergies Allergies/Adverse Reactions: Allergies Allergy/AdvReac Type Severity Reaction Status Date / Time No Known Drug Allergies Allergy Verified 10/26/22 10:55 - Social History Does the pt smoke?: No Smoking Status: Never smoker Does the pt drink ETOH?: No Does the pt have substance abuse?: No - Immunizations Immunizations are current?: Yes - POLST Patient has POLST: No PD ED PE NORMAL - Vitals Vital signs reviewed: Yes - General General: Alert and oriented X 3, No acute distress, Well developed/nourished - HEENT HEENT: PERRL, Ears normal, Moist mucous membranes, Pharynx benign - Neck Neck: Supple, no meningeal sign - Cardiac Cardiac: RRR, Strong equal pulses - Respiratory Respiratory: No respiratory distress, Clear bilaterally - Abdomen Abdomen: Soft, Non tender, Non distended - Back Back: No CVA TTP, No spinal TTP - Derm Derm: Warm and dry, No rash - Extremities Extremities: No edema - Neuro Neuro: Alert and oriented X 3 - Psych Psych: Normal mood, Normal affect Results - Vitals Vitals: Vital Signs - 24 hr 10/26/22 10:52 Temperature 37.3 C Heart Rate 109 H Respiratory 18 Rate Blood Pressure 136/75 H O2 Saturation 98 Oxygen O2 Source Room air - Labs Labs: Laboratory Tests 10/26/22 10:58 Nasal Adenovirus (PCR) NOT DETECTED Nasal B. parapertussis DNA (PCR) NOT DETECTED Nasal Coronavir 229E PCR NOT DETECTED Nasal Coronavir HKU1 PCR NOT DETECTED Nasal Coronavir NL63 PCR NOT DETECTED Nasal Coronavir OC43 PCR NOT DETECTED Nasal Enterovir/Rhinovir PCR NOT DETECTED Nasal Influenza A H3 PCR DETECTED A Nasal Influenza B PCR NOT DETECTED Nasal Parainfluen 1 PCR NOT DETECTED Nasal Parainfluen 2 PCR NOT DETECTED Nasal Parainfluen 3 PCR NOT DETECTED Nasal Parainfluen 4 PCR NOT DETECTED Nasal RSV (PCR) NOT DETECTED Nasal B.pertussis DNA PCR NOT DETECTED Nasal C.pneumoniae (PCR) NOT DETECTED Chris Human Metapneumo PCR NOT DETECTED Nasal M.pneumoniae (PCR) NOT DETECTED Nasal SARS-CoV-2 (PCR) NOT DETECTED PD MEDICAL DECISION MAKING - ED course Complexity details: reviewed results, re-evaluated patient, considered differential, d/w patient, d/w family ED course: Patient is well-appearing, nontoxic. Afebrile. Tolerating p.o. without difficulty. Lungs are clear to auscultation bilaterally. Positive for influenza A. We will continue supportive care at home and [place]. Patient has been sick with symptoms greater than 48 hours, therefore not a candidate for Tamiflu or Xofluza Patient counseled regarding signs and symptoms for which I believe and urgent re-evaluation would be necessary. Patient with good understanding of and agreement to plan and is comfortable going home at this time This document was made in part using voice recognition software. While efforts are made to proofread this document, sound alike and grammatical errors may occur. Departure - Departure Disposition: 01 Home, Self Care Clinical Impression: Influenza A Condition: Good Instructions: ED Flu Follow-Up: Your,doctor in 1 week [Other] Comments: Please drink plenty of fluids and rest. youtested positive for influenza A today. Follow-up with your doctor for further care. Forms: Activity restrictions Discharge Date/Time: 10/26/22 12:38
[2022-10-26 12:45] LABS: B. PARAPERTUSSIS- RESP PCR PAN NOT DETECTED; B. PERTUSSIS- RESP PCR PANEL NOT DETECTED; C. PNEUMONIAE- RESP PCR PANEL NOT DETECTED; CORONAVIRUS 229E-RESP PCR NOT DETECTED; CORONAVIRUS HKU1-RESP PCR NOT DETECTED; CORONAVIRUS NL63-RESP PCR NOT DETECTED; CORONAVIRUS OC43-RESP PCR NOT DETECTED; HUMAN METAPNEUMOVIRUS NOT DETECTED; INFLUENZA A H3- RESP PCR PANEL DETECTED; INFLUENZA B - RESP PCR PANEL NOT DETECTED; M. PNEUMONIAE- RESP PCR PANEL NOT DETECTED; PARAINFLUENZA VIRUS 1 NOT DETECTED; PARAINFLUENZA VIRUS 2 NOT DETECTED; PARAINFLUENZA VIRUS 3 NOT DETECTED; PARAINFLUENZA VIRUS 4 NOT DETECTED; RHINOVIRUS/ENTEROVIRUS NOT DETECTED; RSV- RESP PCR PANEL NOT DETECTED; SARS-CoV-2 -RESP PCR PANEL NOT DETECTED
== END 2022-10-26 12:38 | disposition home or self-care (01) ==
LOC: ED 10:22
DX: J10.1 Influenza due to other identified influenza virus with other respiratory manifestations (principal); Z20.822 Contact with and (suspected) exposure to COVID-19
CPT/HCPCS: 87633; 99282; 99283; A9270